=== PATIENT | male | born 1960 | race African-American/Black ===

== ENCOUNTER 2017-01-26 01:45 | Emergency (ER) | payer SELFPAY ==
[~2017-01-26] VITALS: Ht 175.3 cm; Wt 99.8 kg
--- NOTE | 2017-01-26 01:47 | PHYS DOC ---
Adult General Chief Complaint Chief Complaint: TOE PROBLEM HPI HPI Patient is a 56 year old -[place] male who presents with left great toe pain. States it started this morning as he works nights and got worse about the day. He denies any nausea vomiting. He states it hurts constantly anytime he moves it or touches it it hurts. Review of Systems Review of Systems Constitutional: Denies fever or chills [] Eyes: Denies change in visual acuity, redness, or eye pain [] HENT: Denies nasal congestion or sore throat [] Respiratory: Denies cough or shortness of breath [] Cardiovascular: No additional information not addressed in HPI [] GI: Denies abdominal pain, nausea, vomiting, bloody stools or diarrhea [] : Denies dysuria or hematuria [] Musculoskeletal: Denies back pain, positive for left great toe pain Integument: Denies rash or skin lesions [] Neurologic: Denies headache, focal weakness or sensory changes [] Endocrine: Denies polyuria or polydipsia [] Current Medications Current Medications Current Medications Medications (Trade) Dose Ordered Sig/Lucian Start Time Stop Time Status Last Admin Dose Admin Oxycodone/ Acetaminophen (Percocet 5/325) 2 tab 1X ONCE 01/26/17 02:30 01/26/17 02:31 DC 01/26/17 02:38 2 TAB Allergies Allergies Allergies Coded Allergies Type Severity Reaction Last Updated Verified No Known Drug Allergies 01/26/17 No Physical Exam Physical Exam Constitutional: Well developed, well nourished, no acute distress, non-toxic appearance. [] HENT: Normocephalic, atraumatic, bilateral external ears normal, oropharynx moist, no oral exudates, nose normal. [] Eyes: PERRLA, EOMI, conjunctiva normal, no discharge. [] Neck: Normal range of motion, no tenderness, supple, no stridor. [] Cardiovascular:Heart rate regular rhythm, no murmur [] Lungs & Thorax: Bilateral breath sounds clear to auscultation [] Abdomen: Bowel sounds normal, soft, no tenderness, no masses, no pulsatile masses. [] Skin: Warm, dry, no erythema, no rash. [] Back: No tenderness, no CVA tenderness. [] Extremities: Tender palpation over the left first MTP joint with erythema surrounding it, no cyanosis, no clubbing, ROM intact, no edema. [] Neurologic: Alert and oriented X 3, normal motor function, normal sensory function, no focal deficits noted. [] Psychologic: Affect normal, judgement normal, mood normal. [] Current Patient Data Vital Signs Vital Signs Date Time Temp Pulse Resp B/P (MAP) Pulse Ox O2 Delivery O2 Flow Rate FiO2 01/26/17 01:56 98.8 88 18 98 Room Air 98.8 EKG EKG [] Radiology/Procedures Radiology/Procedures 3 views of the left foot did not show any fractures, bony abnormalities, soft tissue abnormality's, as interpreted by me. Impressions: Left great toe pain Course & Med Decision Making Course & Med Decision Making Pertinent Labs and Imaging studies reviewed. (See chart for details) He does not have a fever or other concerning signs of infection. Since his symptoms came up and it is just localized to his left MTP joint, this is likely gout or arthritis of his great toe. We'll try prednisone for the next 5 days with Percocet. He is instructed if the symptoms get worse he develop fevers or other concerns or could be cellulitis. He is agreeable Plan B discharged in stable condition this time. Dragon Disclaimer Dragon Disclaimer This electronic medical record was generated, in whole or in part, using a voice recognition dictation system. Departure Departure Impression: Primary Impression: Toe pain Disposition: 01 HOME, SELF-CARE Condition: STABLE Patient Instructions: Gout, Hono-ca-Hvgi Additional Instructions: Your symptoms are consistent with gout. Gout tends to develop in the great toe of the foot. You can take prednisone for the next 5 days and Percocet as needed. Please don't drive or taking Percocet or drink alcohol. It can impair your judgment and make you sleepy. If your symptoms improve over the next several days then we know this is likely gout or arthritis of your toe. If your symptoms get worse, you develop fevers, the redness increases, or you have other concerns, you need to return back to emergency department for additional evaluation and treatment. You should follow up with primary care physician within a week. Scripts Oxycodone/Apap 10-325 (PERCOCET 10-325 MG TABLET) 1 Each Tablet 1 TAB PO Q6HRS, #20 TAB Prov: MARCELA BERTRAND MD 01/26/17 Prednisone (PREDNISONE) 20 Mg Tablet 2 TAB PO DAILY, #10 TAB Prov: MARCELA BERTRAND MD 01/26/17 Problem Qualifiers Primary Impression: Toe pain Laterality: left Qualified Codes: M79.675 - Pain in left toe(s) MARCELA BERTRAND MD Jan 26, 2017 01:47
[2017-01-26 01:56] VITALS: BP 137/76
[2017-01-26] MEDS ORDERED: oxyCODONE/APAP 5/325 1 TAB TABLET PO ONE (02:30)
[2017-01-26] MEDS ORDERED: OXYC-328 PO (03:07)
[2017-01-26] MEDS ORDERED: PRED20TA PO (03:07)
[2017-01-26] MEDS ORDERED: predniSONE 10 MG TABLET PO ONE (03:15)
--- NOTE | 2017-01-26 07:29 | RAD ---
Portable left toes, 3 views, 2016: History: Pain No fracture or dislocation is identified. There is moderate joint space narrowing, sclerosis, spurring and subchondral cyst formation at the first MTP joint. There is mild subcutaneous edema about the forefoot. IMPRESSION: 1. 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 2. No acute bony abnormality is detected.
== END 2017-01-26 03:20 | disposition home or self-care (01) ==
LOC: ER 01:45
DX: M79.675 Pain in left toe(s) (principal)
CPT/HCPCS: 73660; 99284; J7512